=== PATIENT | female | born 1990 | race Caucasian/White ===

== ENCOUNTER 2024-05-18 11:50 | Emergency (ER) | payer MEDICAID ==
[~2024-05-18] VITALS: Ht 157.5 cm; Wt 79.5 kg
[2024-05-18 11:56] VITALS: TEMP 97.8
[2024-05-18 13:46] LABS: BASOPHILS % (AUTO) 0.5 % (0.0-2.0); EOSINOPHILS % (AUTO) 2.4 % (1.0-6.0); HEMATOCRIT 38.1 % (36-46); HEMOGLOBIN 12.6 g/dL (12.0-16.0); LYMPHOCYTES # (AUTO) 1.6 K/uL (1.0-4.8); LYMPHOCYTES % (AUTO) 23.5 % (22.0-44.0); MEAN CORPUSCULAR HEMOGLOBIN 30.3 pg (26.0-34.0); MEAN CORPUSCULAR VOLUME 92 fL (80-100); MONOCYTES # (AUTO) 0.5 K/uL (0.1-1.0); NEUTROPHILS # (AUTO) 4.4 K/uL (1.8-7.7); NEUTROPHILS % (AUTO) 65.6 % (40.0-70.0); PLATELET COUNT (AUTO) 308 K/uL (150-450); RED BLOOD CELL COUNT(AUTO) 4.16 MIL/uL (4.00-5.20); RED CELL DISTRIBUTION WIDTH 13.1 % (11.5-14.5); WHITE BLOOD COUNT (AUTO) 6.7 K/uL (4.5-11.0)
[2024-05-18 13:56] LABS: ANION GAP 7 mmol/L (8-16); CALCIUM, TOTAL 8.6 mg/dL (8.8-10.5); CARBON DIOXIDE 31 mmol/L (22-29); CHLORIDE 100 mmol/L (98-107); GLOMERULAR FILTR. RATE CALC > 60 mL/min (>60); GLUCOSE,RANDOM 93 mg/dL (70-110); POTASSIUM 4.1 mmol/L (3.5-5.1); SODIUM SERUM 138 mmol/L (136-145); UREA NITROGEN, BLOOD 9 mg/dL (7-18)
[2024-05-18 15:00] VITALS: BP 109/66; PULSE 74; RESP 17; O2SAT 99
[2024-05-18 15:32] LABS: APPEARANCE,URINE HAZY (CLEAR); BILIRUBIN,URINE NEGATIVE (NEGATIVE); COLOR,URINE LIGHT YELLOW (YELLOW); GLUCOSE, URINE (UA) NEGATIVE (NEGATIVE); KETONES,URINE NEGATIVE (NEGATIVE); LEUKOCYTE ESTERASE ,URINE NEGATIVE (NEGATIVE); NITRATE,URINE NEGATIVE (NEGATIVE); OCCULT BLOOD,URINE TRACE (NEGATIVE); PH,URINE 7.5 (5.0-8.0); PH,URINE DRUG SCREEN 7.5 (5.0-8.0); PROTEIN,URINE NEGATIVE (NEGATIVE); SPECIFIC GRAVITIY, URINE 1.012 (1.003-1.030); UROBILINOGEN,URINE <=1.0 mg/dL (<=1.0)
[2024-05-18 15:43] LABS: AMPHET/METH SCREEN,URINE NEGATIVE (NEGATIVE); BARBITURATE SCREEN, URINE NEGATIVE (NEGATIVE); BENZODIAZEPINES SCREEN,URINE NEGATIVE (NEGATIVE); CANNABINOID SCREEN,URINE NEGATIVE (NEGATIVE); COCAINE SCREEN,URINE NEGATIVE (NEGATIVE); METHADONE SCREEN, URINE NEGATIVE (NEGATIVE); OPIATE SCREEN,URINE NEGATIVE (NEGATIVE); PHENCYCLIDINE SCREEN,URINE NEGATIVE (NEGATIVE)
[2024-05-18 15:44] LABS: ALCOHOL, URINE DRUG SCREEN NEGATIVE (NEGATIVE)
[2024-05-18 15:51] LABS: BACTERIA,URINE Few /HPF (None Seen); RBC,URINE 0-2 /HPF (0-2); SQUAMOUS EPITHELIAL CELL,UR Few /LPF (None Seen); WBC,URINE 0-2 /HPF (0-5)
[2024-05-20 09:07] LABS: HIV 1-2 SCREEN 4TH GEN W/RFLX Non Reactive (Non Reactive)
[2024-05-21 00:06] LABS: HEPATITIS A ANTIBODY IGM Negative (Negative); HEPATITIS B CORE IGM Negative (Negative); HEPATITIS C AB (EIA) Non Reactive (Non Reactive)
== END 2024-05-18 16:18 | disposition home or self-care (01) ==
LOC: EMS 12:03
DX: Z01.812 Encounter for preprocedural laboratory examination (principal)
CPT/HCPCS: 80048; 80074; 80307; 81001; 84703; 85025; 86592; 87389; 99283